=== PATIENT | male | born 1980 | race Caucasian/White ===

== ENCOUNTER 2017-02-04 13:16 | Emergency (ER) | payer OTHER ==
[2017-02-04 13:20] VITALS: BP 138/92; BMI 28.5
--- NOTE | 2017-02-04 14:29 | DR.GENAD ---
HPI - PCP Primary Care Physician: NFD - HPI Comment HPI Comment: facial pressure, pressure behind eyes, sore throat, hoarse voice - Complaint/Symptoms Chief Complaint Doctors Comments: Onset x 1 week Chief Complaint:: PT C/O PROBLEMS WITH SINUSES THAT HAS BEEN GOING ON FOR A WEEK WITH A MIGRAINE THAT STARTED YESTERDAY. PT STATES HE HAS BEEN HAVING FATIGUE, DIZZINESS, AND NAUSEA. - Nurses notes reviewed Nurses Notes Review: Yes - Source History Provided: Patient - Mode of Arrival Mode of Arrival: Ambulatory - Timing Onset of Chief Complaint: 02/03/17 - Modifying Factors Worsens:: nothing Improves:: nothing - Associated Signs and Symptoms Associated Signs and Symptoms: as noted above in HPI PMH - PMH Past Medical History: Yes (Sinusitis) Past Surgical History: Yes Past Surgical History Comment: CYST REMOVAL - Family History History of Family Medical Conditions: No - Social History Does patient currently use any type of tobacco product: No Have you used tobacco products in the last 12 months: No Type of Tobacco Use: None Does any household member use tobacco: No Alcohol Use: Rarely Do you use any recreational Drugs:: No Lives With: Family Lives Where: Home - infectious screening In the last 2 months have you had wt loss of >10#?: NO Have you had fever, night sweats or hemotysis?: No Have you traveled outside the country in the last 6 months?: No Isolation: Standard ROS - Review of Systems Eyes: Other (pressure/ache behind eyes ) ENTM: Nose Congestion (sore throat, hoarseness of voice) Respiratoy: Other (chest congestion) Cardiovascular: No Symptoms Reported Gastrointestinal/Abdominal: No Symptoms Reported Genitourinary: No Symptoms Reported Neurological: No Symptoms Reported Musculoskeletal: No Symptoms Reported Integumentary: No Symptoms Reported Hematologic/Lymphatic: No Symptoms Reported Endocrine: No Symptoms Reported Psychiatric: No Symptoms Reported All Other Systems: Reviewed and Negative PE - Vital Signs Vitals: Temperature 97.8 F Pulse Rate 72 Respiratory Rate 18 Blood Pressure 138/92 O2 Sat by Pulse Oximetry 99 - General Limitations: No Limitations General Appearance: Alert, In No Apparent Distress - Head Head Exam: Normal Inspection - Eyes Eye exam: Normal Appearance - ENT ENT Exam: Normal Exam External Ear Exam: Normal External Inspection TM/Canal Exam: Bilateral Normal Nose Exam: Normal Nose Exam Mouth Exam: Normal Inspection Throat Exam: Normal Inspection - Neck Neck Exam: Normal Inspection - Chest Chest Inspection: Normal Inspection - Respiratory Respiratory Exam: Normal Lung Sounds Bilat Respiratory Exam: Bilateral Clear to Auscultation - Cardiovascular Cardiovascular Exam: Regular Rate, Normal Rhythm - Abdominal Exam Abdominal Exam: Normal Inspection, Normal Bowel Sounds, Soft - Extremities Extremities Exam: Normal Inspection - Back Back Exam: Normal Inspection - Neurologic Neurological Exam: Alert, Oriented X3 - Psychiatric Psychiatric Exam: Normal Affect, Normal Mood - Skin Skin Exam: Warm, Dry, Intact, Normal Color ROR - Labs Reviewed Result Diagrams: 02/04/17 14:30 02/04/17 14:30 Laboratory: WBC 8.3 X10^3/uL (3.6-10.0) 02/04/17 14:30 RBC 5.08 X10^6/uL (4.7-6.0) 02/04/17 14:30 Hgb 15.3 g/dL (13.5-18.0) 02/04/17 14:30 Hct 44.6 % (42.0-54.0) 02/04/17 14:30 MCV 87.8 fL (80.0-100.0) 02/04/17 14:30 MCH 30.0 pg (27.0-34.0) 02/04/17 14:30 MCHC 34.2 g/dL (33.0-35.0) 02/04/17 14:30 RDW 13.2 % (11.6-16.5) 02/04/17 14:30 Plt Count 184 X10^3/uL (150.0-450.0) 02/04/17 14:30 MPV 10.0 fL (7.4-11.0) 02/04/17 14:30 Neut % 52.4 % (42.0-75.0) 02/04/17 14:30 Lymph % 35.6 % (21.0-51.0) 02/04/17 14:30 Frederick % 8.5 % (0.0-13.0) 02/04/17 14:30 Eos % 2.8 % (0.9-2.9) 02/04/17 14:30 Baso % 0.7 % (0.2-1.0) 02/04/17 14:30 Neut # 4.3 x10^3/uL (2.2-4.8) 02/04/17 14:30 Lymph # 2.9 X10^3/uL (1.3-2.9) 02/04/17 14:30 Frederick # 0.7 x10^3/uL (0.3-0.8) 02/04/17 14:30 Eos # 0.2 x10^3/uL (0.0-0.2) 02/04/17 14:30 Baso # 0.1 X10^3/uL (0.0-0.1) 02/04/17 14:30 Absolute Nucleated RBC 0.1 /100WBC 02/04/17 14:30 Sodium 140 mmol/L (136-145) 02/04/17 14:30 Corrected Sodium TNP 02/04/17 14:30 Potassium 4.1 mmol/L (3.5-5.1) 02/04/17 14:30 Chloride 104 mmol/L (98-107) 02/04/17 14:30 Carbon Dioxide 29.8 mmol/L (21-32) 02/04/17 14:30 BUN 10 mg/dL (7-18) 02/04/17 14:30 Creatinine 1.09 mg/dL (0.70-1.30) 02/04/17 14:30 Est GFR (MDRD) Af Amer > 60 (>60) 02/04/17 14:30 Est GFR (MDRD) Non-Af > 60 (>60) 02/04/17 14:30 Glucose 93 mg/dL (65-99) 02/04/17 14:30 Calcium 9.2 mg/dL (8.5-10.1) 02/04/17 14:30 Corrected Calcium TNP 02/04/17 14:30 Total Bilirubin 0.90 mg/dL (0.2-1.0) 02/04/17 14:30 AST 18 Units/L (15-37) 02/04/17 14:30 ALT 28 Units/L (12-78) 02/04/17 14:30 Alkaline Phosphatase 109 Units/L (46-116) 02/04/17 14:30 Total Protein 7.7 g/dL (6.4-8.2) 02/04/17 14:30 Albumin 4.1 g/dL (3.4-5.0) 02/04/17 14:30 Globulin 3.6 g/dL (2.5-4.5) 02/04/17 14:30 Albumin/Globulin Ratio 1.1 Ratio (1.1-2.1) 02/04/17 14:30 Streptococcus Screen Negative (NEGATIVE) 02/04/17 14:30 - Other Results Comments: Strep screen: Negative - XRAY XRAY Interpreted by: Radiologist XRAY Findings: CXR: No acute cardiopulmonary disease - Diagnosis Discharge Problem: Headache, Fatigue - Discharge Plan Disposition: HOME, SELF-CARE Condition: Stable - Follow ups/Referrals Follow ups/Referrals: NFD,None [Primary Care Provider] - 3 days - Instructions Instructions: Tension Headache, [id number]
[2017-02-04 14:45] LABS: BASOPHILS # (AUTO) 0.1 X10^3/uL (0.0-0.1); BASOPHILS % (AUTO) 0.7 % (0.2-1.0); EOSINOPHILS # (AUTO) 0.2 x10^3/uL (0.0-0.2); EOSINOPHILS % (AUTO) 2.8 % (0.9-2.9); HEMATOCRIT 44.6 % (42.0-54.0); HEMOGLOBIN 15.3 g/dL (13.5-18.0); LYMPHOCYTES # (AUTO) 2.9 X10^3/uL (1.3-2.9); LYMPHOCYTES % (AUTO) 35.6 % (21.0-51.0); MEAN CORPUSCULAR HGB CONC 34.2 g/dL (33.0-35.0); MEAN CORPUSCULAR VOLUME 87.8 fL (80.0-100.0); MONOCYTES # (AUTO) 0.7 x10^3/uL (0.3-0.8); MONOCYTES % (AUTO) 8.5 % (0.0-13.0); NEUTROPHILS # (AUTO) 4.3 x10^3/uL (2.2-4.8); NEUTROPHILS % (AUTO) 52.4 % (42.0-75.0); PLATELET COUNT 184 X10^3/uL (150.0-450.0); RED BLOOD COUNT 5.08 X10^6/uL (4.7-6.0); RED CELL DISTRIBUTION WIDTH 13.2 % (11.6-16.5); WHITE BLOOD COUNT 8.3 X10^3/uL (3.6-10.0)
[2017-02-04 14:53] LABS: ALANINE AMINOTRANSFERASE 28 Units/L (12-78); ALBUMIN 4.1 g/dL (3.4-5.0); ALKALINE PHOSPHATASE 109 Units/L (46-116); ASPARTATE AMINO TRANSFERASE 18 Units/L (15-37); BLOOD UREA NITROGEN 10 mg/dL (7-18); CALCIUM 9.2 mg/dL (8.5-10.1); CARBON DIOXIDE 29.8 mmol/L (21-32); CHLORIDE 104 mmol/L (98-107); CREATININE 1.09 mg/dL (0.70-1.30); SODIUM 140 mmol/L (136-145); TOTAL PROTEIN 7.7 g/dL (6.4-8.2); eGFR BLACK RACES > 60 (>60); eGFR NON BLACK RACES > 60 (>60)
--- NOTE | 2017-02-04 15:20 | RAD ---
HISTORY: Congestion. Study: Two-view chest. Comparison: None. Findings: The trachea is midline. The cardiac silhouette is within normal limit. The lungs are clear without focal infiltrate or effusion. There is no pneumothorax The bony thorax is unremarkable. IMPRESSION: No acute cardiopulmonary disease. Reported By:
[2017-02-04] MEDS ORDERED: XYLOCAINE VISCOUS MT ONE (15:56)
[2017-02-04] MEDS ORDERED: NORCO 7.5/325 MG TAB PO ONE (15:59)
[2017-02-04] MEDS ORDERED: XYLOCAINE VISCOUS ONE (16:43)
[2017-02-04] MEDS ORDERED: NORCO 7.5/325 MG TAB ONE (16:44)
== END 2017-02-04 17:19 | disposition home or self-care (01) ==
LOC: ER 13:33
DX: R51 Headache (principal); R53.83 Other fatigue
CPT/HCPCS: 36415; 71020; 80053; 85025; 87070; 87880; 99282; 99283